=== PATIENT | female | born 2005 | race Caucasian/White ===

== ENCOUNTER 2023-03-16 06:28 | Emergency (ER) | payer MEDICAID ==
[2023-03-16] MEDS ORDERED: fentaNYL 100 MCG/2 ML SDV IVPUSH STA (06:47)
[2023-03-16] MEDS ORDERED: fentaNYL 100 MCG/2 ML SDV ONE (06:51)
== END 2023-03-16 07:05 ==
LOC: EDBD → FB.ED 06:28
DX: S32.601A Unspecified fracture of right ischium, initial encounter for closed fracture (principal); V86.99XA Unspecified occupant of other special all-terrain or other off-road motor vehicle injured in nontraffic accident, initial encounter
CPT/HCPCS: 71045; 72170; 96374; 99285; J3010